=== PATIENT | female | born 1950 | race Native Hawaiian/Other Pacific Islander ===

== ENCOUNTER 2016-02-28 07:57 | Outpatient (CLI) | payer OTHER | END 2016-02-28 19:07 | disposition home or self-care (01) | LOC: LABW 07:57 → INF 07:57 → LABW 19:07 | DX: D64.9 Anemia, unspecified (principal) | CPT/HCPCS: 36415; 85014; 85018 ==

== ENCOUNTER 2016-03-12 18:58 | Emergency (ER) | payer OTHER ==
[~2016-03-12] VITALS: Ht 167.6 cm; Wt 704.4 kg
[2016-03-12 19:38] VITALS: BP 182/72; TEMP 98.5
== END 2016-03-12 19:38 | disposition home or self-care (01) ==
LOC: ED 18:58
DX: S50.12XA Contusion of left forearm, initial encounter (principal); W18.39XA Other fall on same level, initial encounter; Y92.098 Other place in other non-institutional residence as the place of occurrence of the external cause
CPT/HCPCS: 99281

== ENCOUNTER 2016-12-06 10:46 | Outpatient (CLI) | payer OTHER | END 2016-12-06 19:32 | disposition home or self-care (01) | LOC: MAMMO 10:46 | DX: Z12.31 Encounter for screening mammogram for malignant neoplasm of breast (principal); Z13.820 Encounter for screening for osteoporosis; Z78.0 Asymptomatic menopausal state ==

== ENCOUNTER 2017-04-15 13:08 | Outpatient (CLI) | payer OTHER | END 2017-04-15 20:08 | disposition home or self-care (01) | LOC: RAD 13:08 | DX: M25.572 Pain in left ankle and joints of left foot (principal) ==

== ENCOUNTER 2017-05-22 10:52 | Outpatient (CLI) | payer OTHER | END 2017-05-22 22:26 | disposition home or self-care (01) | LOC: RAD 10:52 | DX: Z01.818 Encounter for other preprocedural examination (principal) ==

== ENCOUNTER 2017-06-20 07:35 | Outpatient (CLI) | payer OTHER ==
[~2017-06-20] VITALS: Ht 167.6 cm; Wt 75.7 kg
== END 2017-06-20 22:26 | disposition home or self-care (01) ==
LOC: NM 07:35
DX: R07.89 Other chest pain (principal)
CPT/HCPCS: A9500; J2785

== ENCOUNTER 2017-06-25 10:10 | Outpatient (CLI) | payer OTHER | END 2017-06-25 19:55 | disposition home or self-care (01) | LOC: RESP 10:10 | DX: R07.89 Other chest pain (principal) | CPT/HCPCS: 93306 ==

== ENCOUNTER 2017-12-09 09:09 | Outpatient (CLI) | payer OTHER | END 2017-12-09 19:51 | disposition home or self-care (01) | LOC: MAMMO 09:09 | DX: Z12.31 Encounter for screening mammogram for malignant neoplasm of breast (principal) ==

== ENCOUNTER 2018-01-07 10:57 | Outpatient (CLI) | payer OTHER | END 2018-01-07 22:25 | disposition home or self-care (01) | LOC: RAD 10:57 | DX: S91.312D Laceration without foreign body, left foot, subsequent encounter (principal) ==

== ENCOUNTER 2018-05-13 17:02 | Outpatient (CLI) | payer OTHER ==
[2018-05-13 17:39] LABS: PLATELET COUNT 175 K/uL (152-353)
[2018-05-13 18:11] LABS: POTASSIUM 3.3 mmol/L (3.6-5.2)
== END 2018-05-13 21:14 | disposition home or self-care (01) ==
LOC: RAD 17:02
PROVIDERS: Nurse Practitioner
DX: R06.09 Other forms of dyspnea (principal); K74.60 Unspecified cirrhosis of liver; R53.83 Other fatigue
CPT/HCPCS: 36415; 80053; 82140; 82306; 82607; 82746; 83880; 84439; 84443; 85027

== ENCOUNTER 2018-07-21 09:55 | Outpatient (CLI) | payer OTHER | END 2018-07-21 19:47 | disposition home or self-care (01) | LOC: US 09:55 | DX: K74.69 Other cirrhosis of liver (principal) ==

== ENCOUNTER 2018-09-02 11:32 | Outpatient (CLI) | payer OTHER | END 2018-09-02 23:27 | disposition home or self-care (01) | LOC: LABW 11:32 | DX: K75.81 Nonalcoholic steatohepatitis (NASH) (principal) | CPT/HCPCS: 36415; 82784 ==

== ENCOUNTER 2018-12-08 11:09 | Outpatient (CLI) | payer OTHER ==
[2018-12-08 12:38] LABS: PLATELET COUNT 137 K/uL (152-353)
== END 2018-12-08 19:58 | disposition home or self-care (01) ==
LOC: LABW 11:09
PROVIDERS: Internal Medicine Gastroenterology
DX: R94.5 Abnormal results of liver function studies (principal)
CPT/HCPCS: 36415; 80076; 85027

== ENCOUNTER 2019-04-29 12:47 | Outpatient (CLI) | payer OTHER | END 2019-04-29 22:33 | disposition home or self-care (01) | LOC: MRI 12:47 | DX: R42 Dizziness and giddiness (principal) ==

== ENCOUNTER 2019-08-29 18:05 | Outpatient (CLI) | payer OTHER | END 2019-08-29 19:21 | disposition home or self-care (01) | LOC: LAB 18:05 | DX: T67.5XXA Heat exhaustion, unspecified, initial encounter (principal) | CPT/HCPCS: 82550 ==

== ENCOUNTER 2019-10-13 09:01 | Outpatient (CLI) | payer OTHER | END 2019-10-13 20:16 | disposition home or self-care (01) | LOC: RAD 09:01 | DX: M79.672 Pain in left foot (principal); R23.8 Other skin changes; M25.572 Pain in left ankle and joints of left foot ==

== ENCOUNTER 2020-07-15 10:00 | Outpatient (CLI) | payer OTHER | END 2020-07-15 22:56 | disposition home or self-care (01) | LOC: LAB 10:00 | PROVIDERS: ATTEND Nurse Practitioner Family | DX: D64.89 Other specified anemias (principal) | CPT/HCPCS: 82272 ==

== ENCOUNTER 2021-03-29 12:07 | Outpatient (CLI) | payer OTHER | END 2021-03-29 19:00 | disposition home or self-care (01) | LOC: RAD 12:07 | PROVIDERS: ATTEND Nurse Practitioner Family | DX: M25.512 Pain in left shoulder (principal); M25.552 Pain in left hip ==

== ENCOUNTER 2021-04-24 10:53 | Outpatient (CLI) | payer OTHER | END 2021-04-24 19:35 | disposition home or self-care (01) | LOC: MRI 10:53 | PROVIDERS: ATTEND Nurse Practitioner Family | DX: M19.012 Primary osteoarthritis, left shoulder (principal); M25.512 Pain in left shoulder ==

== ENCOUNTER 2021-05-12 21:28 | Emergency (ER) | payer OTHER ==
[~2021-05-12] VITALS: Ht 167.6 cm; Wt 74.8 kg
[2021-05-12 22:31] LABS: PLATELET COUNT 132 K/uL (152-353)
[2021-05-12 22:36] LABS: POTASSIUM 4.4 mmol/L (3.6-5.2)
[2021-05-13 01:15] VITALS: BP 149/57; TEMP 98.1
== END 2021-05-13 01:25 | disposition home or self-care (01) ==
LOC: ED 21:28
PROVIDERS: Emergency Medicine
DX: R55 Syncope and collapse (principal)
CPT/HCPCS: 36415; 80053; 81000; 84484; 85027; 85610; 93005; 99284

== ENCOUNTER 2022-06-13 12:00 | Outpatient (CLI) | payer OTHER | END 2022-06-13 18:56 | disposition home or self-care (01) | LOC: RAD 12:00 | PROVIDERS: ATTEND Nurse Practitioner Family | DX: M25.572 Pain in left ankle and joints of left foot (principal); M79.672 Pain in left foot ==